=== PATIENT | male | born 1980 | race Caucasian/White ===

== ENCOUNTER 2018-09-11 08:59 | Inpatient (IN) | payer OTHER ==
[~2018-09-11] VITALS: Ht 180.3 cm; Wt 84.8 kg
[~2018-09-11 08:59] MED LIST: CEPHALEXIN CAP 500MG; VALACYCLOVIR 500 MG
[2018-09-11] MEDS ORDERED: ONDANSETRON TAB 4MG (09:12)
[2018-09-11] MEDS ORDERED: VALACYCLOVIR 500 MG (09:12)
[2018-09-11] MEDS ORDERED: HYDROCO/APAP TAB 5-325MG (09:12)
[2018-09-11] MEDS ORDERED: ONDANSETRON HCL/PF 4 MG/2 ML VIAL ONE (09:26)
[2018-09-11] MEDS ORDERED: MORPHINE SULFATE INJ 4 MG/ML DISP.SYRIN ONE (09:26)
[2018-09-11] MEDS ORDERED: DICYCLOMINE HCL INJ 20 MG/2 ML AMPUL IM ONE ×2 (09:26→09:30)
[2018-09-11] MEDS ORDERED: IV NS 0.9% 1,000 ML BAG IV ONE (09:30)
[2018-09-11] MEDS ORDERED: ONDANSETRON HCL/PF 4 MG/2 ML VIAL IVP ONE (09:30)
[2018-09-11] MEDS ORDERED: MORPHINE SULFATE INJ 2 MG/ML DISP.SYRIN IV ONE (09:30)
[2018-09-11 09:32] LABS: BASOPHILS # (AUTO) 0.1 /CMM (0.0-0.2); EOSINOPHILS % (AUTO) 0.6 % (0.0-6.0); HEMATOCRIT 51 % (39-51); HEMOGLOBIN 17.4 g/dL (13.5-17.5); LYMPHOCYTES # (AUTO) 1.1 /CMM (0.8-4.8); LYMPHOCYTES % (AUTO) 14.7 % (20.0-44.0); MEAN CORPUSCULAR HGB CONC 34 g/dl (31.0-36.0); MEAN CORPUSCULAR VOLUME 91 fL (80-96); MONOCYTES # (AUTO) 0.5 /CMM (0.1-1.30); MONOCYTES % (AUTO) 6.5 % (2.0-12.0); NEUTROPHILS # (AUTO) 5.7 /CMM (1.8-8.9); NEUTROPHILS % (AUTO) 77.2 % (43.0-81.0); PLATELET COUNT (AUTO) 328 /CMM (150-450); RED BLOOD CELL COUNT(AUTO) 5.59 MIL/uL (4.5-6.0); WHITE BLOOD COUNT (AUTO) 7.3 K/uL (4.3-11.0)
[2018-09-11 09:35] LABS: CALCIUM, SERUM 9.3 mg/dL (8.5-10.1); CREATININE 0.9 mg/dL (0.6-1.3); POTASSIUM 3.9 mmol/L (3.5-5.1)
--- NOTE | 2018-09-11 09:36 | NUR ---
pt bib self from home, c/o abd pain since 5am, +N/V, -diarrhea, alert and oriented x 4, verbally responsive and able to make needs known. On room air, satinf 97%, breathing evenly and unlabored. Kept comfortable. Dr. Shields at bedside for eval. Connect to the monitor. Will continue to monitor accordingly.
[2018-09-11 09:44] LABS: ALBUMIN 4.2 g/dL (3.4-5.0); BILIRUBIN,DIRECT 0.1 mg/dL (0.0-0.2); BILIRUBIN,TOTAL 0.6 mg/dL (0.2-1.0); TOTAL PROTEIN, SERUM 7.7 g/dL (6.4-8.2)
--- NOTE | 2018-09-11 10:35 | NUR ---
Elvin chris in [place] - 09/11/18 at 1039 by ESTEFANI Pt accepted by Dr. Holland to Room # 209-A Number for report is [phone] Authorization for transport # [id number]
[2018-09-11] MEDS ORDERED: MAGNESIUM HYDROXIDE 30 ML UDC PO PRN (11:30)
[2018-09-11] MEDS ORDERED: MAG HYDROX/AL HYDROX/SIMETH 30 ML UDC PO PRN (11:30)
[2018-09-11] MEDS ORDERED: ACETAMINOPHEN 325 MG TABLET PO PRN (11:30)
[2018-09-11] MEDS ORDERED: ONDANSETRON HCL/PF 4 MG/2 ML VIAL IVP PRN (11:30)
--- NOTE | 2018-09-11 11:44 | NUR ---
called [facility] and spoke to Ai and report given for delfino.
[2018-09-11 11:50] VITALS: BP 138/74
--- NOTE | 2018-09-11 11:52 | NUR ---
[employer]OP [employer]IL SCIENTIST NOTE RECEIVED PATIENT VIA GURNEY FROM EMERGENCY ROOM. PATIENT IS ALERT AND ORIENTED x4 AND ABLE TO COMMUNICATE NEEDS. FACIAL GRIMACING NOTED WHILE GRASPING ABDOMINAL AREA FOR PAIN. NPO AT THIS TIME. NO KNOWN ALLERGIES. CAME TO THE ER FOR ABDOMINAL PAIN WITH NAUSEA AND VOMITING. NO DIARRHEA PRESENT AT THIS TIME. AMBULATORY. FULL CODE. SKIN INTACT. LEFT AC 20 G INTACT AND PATENT NO REDNESS OR SWELLING NOTED. LABS WITHIN NORMAL LIMITS. MRSA SWAB DONE AND SENT TO LAB. PATIENT STATED THEY HAVE BEEN HERE PRIOR TO THIS ADMISSION AND WAS DIAGNOSED WITH PANCREATITIS. HISTORY OF GENITAL HERPES WITH NO ACTIVE LESIONS PRESENT. REFUSES FLU VACCINATION AT THIS TIME. AWAITING MD ORDERS AT THIS TIME. WILL CONTINUE TO MONITOR
--- NOTE | 2018-09-11 12:04 | NUR ---
wheeled patient via gurney accompanied by nuclear medicine tech in stable condition, in no apparent distress, going to room 315-1.
[2018-09-11] MEDS: IV NS 0.9% 1,000 ML IV PRN ×2 (12:35→21:49)
[2018-09-11] MEDS: HYDROMORPHONE INJ 2 MG/ML DISP.SYRIN IV PRN ×2 (12:50→23:40)
--- NOTE | 2018-09-11 13:30 | NUR ---
MS RN NOTE PER VINAY PATIENT NEEDS GI CONSULT. INFORMED KATIE RICE FOR CONSULTATION. AWAITING CALL BACK
--- NOTE | 2018-09-11 13:35 | NUR ---
MS RN NOTE RECEIVED CALL BACK FROM [facility] WILL SEE PATIENT LATER TODAY
[2018-09-11 16:00] VITALS: BP 107/56
--- NOTE | 2018-09-11 16:55 | NUR ---
MS RN NOTE SEEN BY KATIE RICE AT BEDSIDE FOR GI CONSULT
--- NOTE | 2018-09-11 18:15 | NUR ---
MS RN NOTE PATIENT STATED " IM JUST CONCERNED ABOUT ME STAYIN GIN THE HOSPITAL I HAVE WORK IN THE MORNING AND DONT WANT A BIGGER HOSPITAL BILL THAN I NEED. SO IF THE TESTING CAN BE DONE TODAY THAT WOULD BE GREAT" INFORMED KATIE RICE ABOUT PATIENTS CONCERNS AWAITING TO HEAR BACK
--- NOTE | 2018-09-11 18:47 | NUR ---
MS RN CLOSING NOTE PATIENT RESTING IN BED AT THIS TIME. NO FACIAL GRIMACING NOTED FOR PAIN. NO SOB OR DISTRESS NOTED ON ROOM AIR TOLERATING WELL AT 96%. ALERT AND ORIENTED x4, ABLE TO COMMUNICATE NEEDS. IV ON LEFT AC 20G INTACT AND PATENT NO REDNESS OR SWELLING NOTED WITH IV FLUIDS RUNNING AT 125 ML/HR. ALL DUE MEDICATIONS GIVEN ORDERED. ALL NURSING CARE NEEDS ATTENDED TO NEEDED. PER KATIE RICE POSSIBLE CT ABD TO BE ORDERED, AWAITING FOR ORDERS. WILL ENDORSE TO INVESTMENT SALES ASSISTANT NURSE FOR [facility]IS[facility]
--- NOTE | 2018-09-11 19:00 | NUR ---
MS RN OPENING NOTES Received patient A/O X4, on semi-Bloom's position on bed watching TV, feeling comfortable, denies any discomfort at this time. No pain, and N/V noted. On RA, no SOB/respiratory distress noted. Ambulatory, steady gait. Call light at bedside. Will continue to monitor accordingly.
--- NOTE | 2018-09-11 19:29 | NUR ---
RN NOTES Received order abdominal CT scan STAT by KATIE Lawrence. Notified radiology. Informed consent signed by the patient.
[2018-09-11 20:00] VITALS: BP 122/69
[2018-09-11] MEDS ORDERED: MORPHINE SULFATE INJ 2 MG/ML DISP.SYRIN IV PRN (22:30)
--- NOTE | 2018-09-11 23:36 | NUR ---
MS RN NOTES Patient is frustrated of unable to go home soon. Irritated of the uncontrollable noise in the room. Patient asking for sleeping pills. Explained to patient no sleeping pill is ordered. Offered to patient a room change. Patient agreed, transferred to [facility]. Made comfortable to bed. Patient asking for pain med. Administered as ordered. Patient appreciative of the efforts done. Will continue to monitor accordingly.
[2018-09-12] MEDS ORDERED: LORAZEPAM INJ 2 MG/ML VIAL IV PRN
[2018-09-12] MEDS: IV NS 0.9% 1,000 ML IV PRN (05:52)
--- NOTE | 2018-09-12 06:32 | NUR ---
MS RN CLOSING NOTES Patient asleep, easily awaken to stimuli, on left sidelying position on bed. With patent peripheral IV line LAC G#20 with NS infusing well @ 125ml/hr as ordered. Denies discomfort at this time. Awaiting for the repeat labs. Remained on NPO throughout the shift. Endorsed to the next shift.
[2018-09-12 07:22] LABS: BASOPHILS % (AUTO) 0.8 % (0.0-2.0); EOSINOPHILS % (AUTO) 1.9 % (0.0-6.0); HEMATOCRIT 45 % (39-51); HEMOGLOBIN 14.8 g/dL (13.5-17.5); LYMPHOCYTES # (AUTO) 1.7 /CMM (0.8-4.8); LYMPHOCYTES % (AUTO) 35.4 % (20.0-44.0); MEAN CORPUSCULAR HGB CONC 33 g/dl (31.0-36.0); MEAN CORPUSCULAR VOLUME 93 fL (80-96); MONOCYTES # (AUTO) 0.5 /CMM (0.1-1.30); MONOCYTES % (AUTO) 9.6 % (2.0-12.0); NEUTROPHILS # (AUTO) 2.5 /CMM (1.8-8.9); NEUTROPHILS % (AUTO) 52.3 % (43.0-81.0); PLATELET COUNT (AUTO) 254 /CMM (150-450); RED BLOOD CELL COUNT(AUTO) 4.85 MIL/uL (4.5-6.0); WHITE BLOOD COUNT (AUTO) 4.8 K/uL (4.3-11.0)
--- NOTE | 2018-09-12 07:41 | NUR ---
MS RN Opening Note Received patient asleep, but easily arousable to name. Patient alert and oriented x4, able to make needs known. Respirations even and unlabored on room air. Peripheral IV to the left AC 20 gauge, intact, patent and running NS at 125 mL/hr. Safety and Fall precautions in place: bed in lowest and locked position, side rails up x 2, bed alarm on, call light within reach. Reviewed safety measures and plan of care with patient, verbalized understanding. Will continue to monitor and intervene as needed.
[2018-09-12 07:43] LABS: CALCIUM, SERUM 8.4 mg/dL (8.5-10.1); CREATININE 0.9 mg/dL (0.6-1.3); MAGNESIUM 1.8 mg/dL (1.8-2.4); PHOSPHORUS 3.5 mg/dL (2.5-4.9); POTASSIUM 4.3 mmol/L (3.5-5.1)
[2018-09-12 08:00] VITALS: BP 111/55
[2018-09-12] MEDS ORDERED: PANTOPRAZOLE 40 MG VIAL IV SCH (09:00)
--- NOTE | 2018-09-12 13:30 | NUR ---
MS farm instructor Note Patient escorted to [facility] by HUGH Baig in stable condition, vital signs stable. Ambulated with steady gait. Able to tolerated diet advancement with no nausea or vomitting. Patient alert and oriented x4, able to make needs known. Respirations even and unlabored on room air. Peripheral IV to the left AC 20 gauge removed with catheter tip intact; no redness, swelling or infiltration of the site noted. ID band removed. Patient refused skin assessment photos to be taken upon discharge, skin intact. Patient left will all personal belongings, acknowledged and verified via signature on belongings form. Discharge instructions and Exitcare given to patient, patient verbalized understanding of all instructions and verified via signature on discharge paperwork. Copies placed in chart.
== END 2018-09-12 13:15 | disposition home or self-care (01) | DRG 438 ==
LOC: ER 09:00 → MED 10:42
PROVIDERS: ADMIT Nurse Practitioner Acute Care; ATTEND Internal Medicine
DX: K85.20 Alcohol induced acute pancreatitis without necrosis or infection (principal); N17.0 Acute kidney failure with tubular necrosis; F10.20 Alcohol dependence, uncomplicated; F12.90 Cannabis use, unspecified, uncomplicated; A60.00 Herpesviral infection of urogenital system, unspecified
CPT/HCPCS: 36415; 74150-TC; 80048-TC; 80076-TC; 83690-TC; 83735-TC; 84100-TC; 85025-TC; 87081-TC; G0378; J0500; J1170; J2060; J2270; J2405; J7030

== ENCOUNTER 2018-09-13 02:25 | Emergency (ER) | payer OTHER ==
[~2018-09-13] VITALS: Ht 180.3 cm; Wt 79.4 kg
[~2018-09-13 02:25] MED LIST changes: +HYDROCO/APAP TAB 5-325MG; +ONDANSETRON TAB 4MG
--- NOTE | 2018-09-13 02:35 | NUR ---
PT BIB SELF C/O STOMACH PAIN, PT HAS SEVERE PAIN, +N, -V/D. PT AOX4 ON MONITOR IN BED 7. NAD NOTED. WILL CONTINUE TO MONITOR.
--- NOTE | 2018-09-13 02:40 | NUR ---
BLOOD DRAWN AND GIVEN TO LAB
[2018-09-13] MEDS ORDERED: ONDANSETRON HCL/PF 4 MG/2 ML VIAL ONE (02:41)
[2018-09-13] MEDS ORDERED: HYDROMORPHONE INJ 2 MG/ML DISP.SYRIN ONE (02:41)
[2018-09-13 02:52] LABS: BASOPHILS % (AUTO) 0.3 % (0.0-2.0); EOSINOPHILS % (AUTO) 1.1 % (0.0-6.0); HEMATOCRIT 46 % (39-51); HEMOGLOBIN 15.5 g/dL (13.5-17.5); LYMPHOCYTES # (AUTO) 1.2 /CMM (0.8-4.8); MEAN CORPUSCULAR HGB CONC 34 g/dl (31.0-36.0); MEAN CORPUSCULAR VOLUME 92 fL (80-96); MONOCYTES # (AUTO) 0.5 /CMM (0.1-1.30); MONOCYTES % (AUTO) 7.5 % (2.0-12.0); NEUTROPHILS # (AUTO) 4.9 /CMM (1.8-8.9); NEUTROPHILS % (AUTO) 73.1 % (43.0-81.0); PLATELET COUNT (AUTO) 275 /CMM (150-450); RED BLOOD CELL COUNT(AUTO) 4.96 MIL/uL (4.5-6.0); WHITE BLOOD COUNT (AUTO) 6.8 K/uL (4.3-11.0)
--- NOTE | 2018-09-13 02:53 | NUR ---
TECH AT BEDSIDE FOR EKG
--- NOTE | 2018-09-13 02:57 | NUR ---
PT IS GOING TO 306-2 [facility].
[2018-09-13] MEDS ORDERED: HYDROMORPHONE INJ 2 MG/ML DISP.SYRIN IV ONE (03:00)
[2018-09-13] MEDS ORDERED: ONDANSETRON HCL/PF 4 MG/2 ML VIAL IVP ONE (03:00)
[2018-09-13] MEDS ORDERED: IV NS 0.9% 1,000 ML BAG IV ONE (03:00)
[2018-09-13 03:06] LABS: ALBUMIN 3.7 g/dL (3.4-5.0); BILIRUBIN,DIRECT 0.1 mg/dL (0.0-0.2); BILIRUBIN,TOTAL 0.6 mg/dL (0.2-1.0); CALCIUM, SERUM 9.1 mg/dL (8.5-10.1); CREATININE 0.9 mg/dL (0.6-1.3); TOTAL PROTEIN, SERUM 6.5 g/dL (6.4-8.2)
--- NOTE | 2018-09-13 04:35 | NUR ---
IV removed. Catheter intact and site benign. Pressure and 4x4 applied to site. No bleeding noted.Patient discharged to home in stable condition. Written and verbal after care instructions given. Patient verbalizes understanding of instruction. PT AMBULATORY WITH STEADY GAIT. VSS.
[2018-09-13 04:36] VITALS: BP 118/65
== END 2018-09-13 04:37 | disposition home or self-care (01) ==
LOC: ER 02:26
DX: R10.13 Epigastric pain (principal); R11.2 Nausea with vomiting, unspecified; F17.200 Nicotine dependence, unspecified, uncomplicated; F12.10 Cannabis abuse, uncomplicated; Z60.2 Problems related to living alone
CPT/HCPCS: 36415; 80048-TC; 80076-TC; 83690-TC; 84484-TC; 85025-TC; J1170; J2405; J7030